=== PATIENT | female | born 1995 | race Caucasian/White ===

== ENCOUNTER 2017-08-13 23:05 | Emergency (ER) | payer BC ==
[2017-08-13] MEDS ORDERED: 0.9 % SODIUM CHLORIDE 1,000 ML BAG IV ONE (23:46)
[2017-08-13] MEDS ORDERED: ONDANSETRON HCL IV 4 MG/2 ML VIAL IV ONE (23:46)
--- NOTE | 2017-08-13 23:46 | Emergency Department Record ---
History of Present Illness - General Chief Complaint: Abdominal Pain Stated Complaint: ABD PAIN Time Seen by Provider: 08/13/17 23:38 Source: Patient Mode of Arrival: Ambulatory Limitations: No limitations - History of Present Illness Initial Comments: 22 yo female presents with lower abdominal pain the last hour and a half. She states she had a normal day. She was breast feeding her two month old and developed a sharp cramp across the mid abdomen. She became nauseated. She had a loose bowel movement as well. She had been having normal bowel movements prior to this. NO fever. No vaginal bleeding or discharge. No dysuria. She had an emergency C Section due to abruption. She reports she healed well without complications. Her PCP and delivery were in [facility]. She denies any recent illness this past week. MD Complaint: Abdominal pain Onset/Timin -: Hour(s) Location: Suprapubic Radiation: None Quality: Cramping Consistency: Constant Improves With: Other Worsens With: Movement Associated Symptoms: Nausea - Related Data Home Medications Medication Instructions Recorded Confirmed Last Taken Ibuprofen [Motrin] 800 mg PO Q8H PRN 08/13/17 08/13/17 Unknown No122/Iron/Folic Acid 1 each PO DAILY 08/13/17 08/13/17 Unknown [ Multi Tablet] Sertraline HCl [Zoloft] 25 mg PO DAILY 08/13/17 08/13/17 Unknown Previous Rx's Medication Instructions Recorded Ondansetron [Zofran Odt] 4 mg PO Q8H #12 tab.rapdis 08/14/17 Allergies Allergy/AdvReac Type Severity Reaction Status Date / Time Penicillins Allergy HIVES Verified 02/12/16 03:02 Travel Screening - Travel/Exposure Within Last 30 Days Have you traveled within the last 30 days?: No - Travel Symptoms Symptom Screening: None Review of Systems Constitutional: Denies: Chills, Fever, Malaise, Weakness Eyes: Denies: Eye discharge ENT: Denies: Congestion, Throat pain Respiratory: Denies: Cough Cardiovascular: Denies: Chest pain, Syncope Endocrine: Denies: Fatigue Gastrointestinal: Reports: As per HPI, Abdominal pain, Diarrhea, Nausea, Vomiting Genitourinary: Denies: Dysuria, Urgency Musculoskeletal: Denies: Arthralgia, Back pain, Neck pain Skin: Denies: Bruising, Change in color Neurological: Denies: Confusion, Headache, Numbness, Weakness Psychiatric: Denies: Anxiety Hematological/Lymphatic: Denies: Blood Clots, Easy bleeding, Easy bruising, Swollen glands Past Medical History - SOCIAL HISTORY Smoking Status: Never smoker - RESPIRATORY Hx Respiratory Disorders: No - CARDIOVASCULAR Hx Cardio Disorders: No - NEURO Hx Neuro Disorders: Yes Hx Seizures: Yes (last 2012 partial) - GI Hx GI Disorders: No - Hx Genitourinary Disorders: Yes Comment:: Post 2 mos; Placenta abruption, emergent - ENDOCRINE Hx Endocrine Disorders: No - MUSCULOSKELETAL Hx Musculoskeletal Disorders: No - PSYCH Hx Psych Problems: Yes Hx Anxiety: Yes Hx Depression: Yes - HEMATOLOGY/ONCOLOGY Hx Hematology/Oncology Disorders: Yes Hx Blood Transfusions: Yes (with delivery of baby due to abruption.) Hx Blood Transfusion Reaction: No Family Medical History Any Significant Family History?: Yes Hx HTN: Grandparents Hx Seizures: Mother Physical Exam - General General Appearance: Alert, Oriented x3, Cooperative, No acute distress Limitations: No limitations - Head Head exam: Normal inspection - Eye Eye exam: Normal appearance - ENT ENT exam: Normal exam Ear exam: Normal external inspection Nasal Exam: Normal inspection Mouth exam: Normal external inspection Teeth exam: Normal inspection Throat exam: Normal inspection. negative: Tonsillar erythema, Tonsillar exudate - Neck Neck exam: Normal inspection, Full ROM. negative: Tenderness - Respiratory Respiratory exam: Normal lung sounds bilaterally. negative: Respiratory distress - Cardiovascular Cardiovascular Exam: Regular rate, Normal rhythm, Normal heart sounds - GI/Abdominal GI/Abdominal exam: Soft, Tenderness (tender across the mid abdomen). negative: Distended, Guarding - Rectal Rectal exam: Deferred - exam: Deferred - Extremities Extremities exam: Normal inspection, Full ROM, Normal capillary refill. negative: Tenderness - Back Back exam: Reports: Normal inspection, Full ROM. Denies: Muscle spasm, Rash noted, Tenderness - Neurological Neurological exam: Alert, Normal gait, Oriented X3 - Psychiatric Psychiatric exam: Normal affect, Normal mood - Skin Skin exam: Dry, Intact, Normal color, Warm Course Vital Signs 08/13/17 23:16 Temperature 98.0 F Pulse Rate [ 72 Pulse Ox Probe] Respiratory 20 Rate Blood Pressure 120/73 [Left Arm] Pulse Ox 98 The vitals were reviewed. No acute changes - Reevaluation(s) Reevaluation #1: The CBC was reviewed NO acute changes The patient states she has significant improvement of her symptoms. No more cramping or diarrhea. 08/14/17 00:32 08/14/17 00:44 No acute changes on the UA. 08/14/17 00:44 The UCG is negative 08/14/17 00:51 The CMP and Lipase were reviewed. No acute changes. 08/14/17 01:11 The patient continues to feel very good. No pain or diarrhea We discussed DC home as well as reasons to return to the ED for a re-evaluation We discussed bland diet and slowly advance. Medical Decision Making - Lab Data Result diagrams: 08/14/17 00:00 08/14/17 00:00 Disposition Disposition: Discharge Clinical Impression: Diarrhea Qualifiers: Diarrhea type: unspecified type Qualified Code(s): R19.7 - Diarrhea, unspecified Abdominal pain Qualifiers: Abdominal location: unspecified location Qualified Code(s): R10.9 - Unspecified abdominal pain Disposition: Home, Self-Care Condition: (1) Good Instructions: Acute Diarrhea (ED), Abdominal Pain (ED) Additional Instructions: Rest and stay hydrated Return if you have any fever, vomiting, return of any pain or diarrhea Avoid fatty foods or heavy dairy for the next day Prescriptions: Ondansetron [Zofran Odt] 4 mg PO Q8H #12 tab.rapdis Forms: Patient Portal Access Time of Disposition: 00:54 Quality - Quality Measures Quality Measures: N/A - Blood Pressure Screening Does Patient Have Any of the Following: No Blood Pressure Classification: Normal BP Reading Systolic Measurement: 101 Diastolic Measurement: 64 Screening for High Blood Pressure: < Normal BP, F/U Not Required > [[id number]] Pre-Hypertensive Follow-up Interventions: Referral to alternative/primary care provider.
[2017-08-14 00:23] LABS: BASO % 0.1 % (0-6); GRAN % 59.3 % (47-80); HEMATOCRIT 39.3 % (35.0-47.0); HEMOGLOBIN 12.3 gm/dl (11.6-16.0); LYMPH % 27.4 % (16-45); MEAN CELL VOLUME 82.7 fl (81-97); MEAN CORPUSCULAR HEMOGLOBIN 25.9 pg (27-33); MEAN CORPUSCULAR HGB CONC 31.3 g/dl (32-36); MEAN PLATELET VOLUME 9.9 fl (7.4-10.4); MONO % 10.2 % (0-9); PLATELET COUNT 288 K/uL (130-400); RED BLOOD COUNT 4.75 M/uL (3.80-5.40); RED CELL DISTRIBUTION WIDTH 13.4 % (11.5-14.5); WHITE BLOOD COUNT W/O DIFF 7.6 K/uL (4.2-12.2)
[2017-08-14 00:33] LABS: HCG,QUALITATIVE URINE NEGATIVE (NEGATIVE)
[2017-08-14 00:35] LABS: URINE APPEARANCE CLEAR; URINE BILIRUBIN NEGATIVE (NEGATIVE); URINE COLOR YELLOW; URINE GLUCOSE (UA) NEGATIVE (NEGATIVE); URINE KETONE NEGATIVE (NEGATIVE)
[2017-08-14 00:36] LABS: URINE BLOOD NEGATIVE (NEGATIVE); URINE LEUKOCYTE ESTERASE NEGATIVE (NEGATIVE); URINE NITRITE NEGATIVE (NEGATIVE); URINE PROTEIN NEGATIVE (NEGATIVE); URINE UROBILINOGEN 0.2 E.U./dL (0.20 - 1.00)
[2017-08-14 00:50] LABS: ALB/GLOB RATIO 1.2 (1.1-1.8); ALBUMIN 4.5 g/dL (4.0-5.0); ALKALINE PHOSPHATASE 113 U/L (35-104); ALT/SGPT 25 U/L (<33); AST/SGOT 22 U/L (10.0-35.0); BLOOD UREA NITROGEN 18 mg/dL (6-20); CREATININE 0.7 mg/dL (0.5-0.9); EST GLOMERULAR FILTRATION RATE > 60 mL/min; GLUCOSE,RANDOM 86 mg/dL (74-109); LIPASE 30 U/L (13-60); TOTAL PROTEIN 8.3 g/dL (6.6-8.7)
[2017-08-14] MEDS ORDERED: ONDANSETRON 4 MG ODT TABLET SL ONE ×2 (01:09)
== END 2017-08-14 01:24 | disposition home or self-care (01) ==
LOC: ER 23:05
DX: R19.7 Diarrhea, unspecified (principal); R11.0 Nausea; R10.30 Lower abdominal pain, unspecified
CPT/HCPCS: 99284 ×2; 96374; 96361; 83690; 85025; 80053; 81003; 81025; J2405; J7030